=== PATIENT | male | born 1960 | race Caucasian/White ===

== ENCOUNTER → 2016-08-23 | Outpatient (CLI) | payer OTHER ==
--- NOTE | 2016-08-23 13:13 | FL ---
EXAMINATION TYPE: FL UGI DATE OF EXAM: 08/23/2016 10:29 AM COMPARISON: NONE CLINICAL HISTORY: Difficulty in swallowing. Preliminary view of the abdomen reveals a normal bowel gas pattern. Upper GI examination was performed according to the air contrast technique. Barium and effervescent crystal was swallowed without difficulty or delay. Esophageal peristalsis and motility are within normal limits. There is no evidence for esophagitis, intraluminal mass, hiatal hernia or gastroesophageal reflux. The stomach has a normal appearance in terms of its size, shape and location. No gastric filling defects or ulcer craters are seen. The du odenal bulb and sweep are also free of intraluminal lesion or ulcer crater. IMPRESSION: Unremarkable evaluation.
== END | disposition home or self-care (01) ==
LOC: RADFLWHC 09:25
PROVIDERS: ATTEND Family Medicine
DX: R10.13 Epigastric pain (principal)
CPT/HCPCS: 74240

== ENCOUNTER → 2016-09-18 | Outpatient (CLI) | payer OTHER ==
--- NOTE | 2016-09-18 12:12 | ECHOS ---
Referral Reason:[id number] chest pain MEASUREMENTS -------- HEIGHT: 182.9 cm WEIGHT: 106.6 kg BP: 131/49 FINDINGS -------- Utilizing the standard Jonathan protocol the patient was exercised for 7 minutes, 30 seconds, achieving a maximum heart rate of 164 , which is 98 % of predicted maximal heart rate. There was physiologic heart rate and blood pressure response to exercise. Max Heart Rate: 164 % of Max Predicted Heart Rate: 98 Rest Heart Rate: 101 Rest BP: 131/49 Max BP: 204/92 Mets Achieved: 9.1 The test was stopped because the target heart rate was achieved. Sinus rhythm. In response to stress, the ECG showed no ST-T wave changes (see exercise report for details). LV size, wall thickness and systolic function are normal, with an EF of 60%. Echo images were acquired at peak stress which demonstrated appropriate augmentation of all left ventricular segments with slight decrease in cavity size. CONCLUSIONS -------- 1. Sinus rhythm. 2. In response to stress, the ECG showed no ST-T wave changes (see exercise report for details). 3. LV size, wall thickness and systolic function are normal, with an EF of 60%. 4. Echo images were acquired at peak stress which demonstrated appropriate augmentation of all left ventricular segments with slight decrease in cavity size. 5. No 2D echocardiographic evidence of inducible ischemia to achieved workload. ENGAGEMENT LIAISON: Adi Ramirez RDCS
== END | disposition home or self-care (01) ==
LOC: RADNMMAIN 09:12
PROVIDERS: ATTEND Family Medicine
DX: R07.9 Chest pain, unspecified (principal)
CPT/HCPCS: 93350; 93017; Q9957

== ENCOUNTER 2017-01-08 10:18 | Day surgery (SDC) | payer OTHER ==
[2017-01-03 15:06] VITALS: BMI 31.1
[~2017-01-08 10:18] MED LIST: LACTATED RINGERS 1,000 ML IV SCH
[2017-01-08 11:26] VITALS: RESP 16; TEMP 96.8
[2017-01-08] MEDS ORDERED: LIDOCAINE 1% 20 ML VIAL (10MG/ML) FOR IV START INTRADERMA ONE (11:33)
[2017-01-08] MEDS ORDERED: PROPOFOL 10 MG/ML 20 ML VIAL IV ONE (12:20)
[2017-01-08] MEDS ORDERED: LIDOCAINE 1% INJ 10MG/ML (20 ML MDV) ONE (12:20)
--- NOTE | 2017-01-08 12:57 | P.PCN ---
Date of Procedure: 01/08/17 Procedure(s) Performed: Procedure: Total colonoscopy. Preoperative diagnosis: Screening for neoplasia, patient has history of adenomatous polyp. Postoperative diagnosis: Exam within normal limits. Preparation: HalfLytely prep. Sedation: Was provided by anesthesia. Brief clinical history: The patient is a 56-year-old male who is scheduled for this evaluation because of history of polyps. His last exam was in January 2014 where a sigmoid adenoma was removed. The patient has been having some nonspecific abdominal symptoms over the last 8-9 months. An upper GI was normal. A CT of the abdomen raised the possibility of mesenteric adenitis. The patient had no bowel changes, vomiting or other alarm symptoms. Procedure: With the patient on his left lateral decubitus position and after informed consent and adequate sedation, the perianal area was inspected and it did not show any fissures or fistulas. There were no masses felt on digital rectal examination. The Olympus CFQ 160L video colonoscope was then inserted in the rectum in the usual fashion and advanced to the cecum. The mucosa appeared healthy. No significant polyps or tumors were seen or any obvious diverticular disease or other pathology. I retroflexed the endoscope in the rectum before the endoscope was withdrawn. The patient tolerated the procedure well. Plan: The patient was reassured. He will continue his regular follow-up with you and I recommended repeat exam in 5 years. I will be happy to see in the office of his abdominal complaints recur or change.
[2017-01-08 13:42] VITALS: BP 118/76; PULSE 75
== END 2017-01-08 14:04 | disposition home or self-care (01) ==
LOC: ORWHC2ENDO 10:18
DX: Z12.11 Encounter for screening for malignant neoplasm of colon (principal); I10 Essential (primary) hypertension; Z86.010 Personal history of colon polyps; Z79.899 Other long term (current) drug therapy
CPT/HCPCS: G0105; J2001; J2704; 45378

== ENCOUNTER 2022-02-07 10:20 | Day surgery (SDC) | payer OTHER ==
[2022-02-05 13:45] VITALS: BMI 31.1
[~2022-02-07 10:20] MED LIST changes: +LIDOCAINE 1% (10MG/ML) FOR IV START INTRADERMA PRN
[2022-02-07 10:51] VITALS: TEMP 97.8
[2022-02-07] MEDS ORDERED: PROPOFOL 10 MG/ML 20 ML VIAL IV ONE (11:43)
--- NOTE | 2022-02-07 11:59 | P.PCN ---
Date of Procedure: 02/07/22 Procedure(s) Performed: BRIEF HISTORY: Patient is a 61-year-old pleasant male scheduled for an elective colonoscopy as a part of evaluation of prior history of colon polyps/screening for colon cancer. Last colonoscopy was 5 years ago. PROCEDURE PERFORMED: Colonoscopy with snare polypectomy. PREOPERATIVE DIAGNOSIS: History of colon polyps/screening for colon cancer. IV sedation per Anesthesia. PROCEDURE: After informed consent was obtained, the patient, was brought into the endoscopy unit. IV sedation was administered by Anesthesia under continuous monitoring. Digital rectal examination was normal. Initially the Olympus CF-160 flexible video colonoscope was then inserted in the rectum, gradually advanced into the cecum without any difficulty. Careful examination was performed as the scope was gradually being withdrawn. Ileocecal valve and the appendiceal orifice were visualized and appeared normal. Prep was excellent. Mucosa of the cecum, appeared normal. Ascending colon there was a 5 limited polyp that was removed by snare polypectomy. Rest of the ascending colon, transverse colon, descending colon, sigmoid colon, and rectum appeared normal. Retroflexion was performed in the rectum and no lesions were seen. The patient tolerated the procedure well. IMPRESSION: 5 mm ascending colon polyp status post polypectomy Rest of the colon appeared normal RECOMMENDATIONS: Findings of this examination were discussed with the patient as his family.. He was advised to follow with the biopsy results and have a repeat colonoscopy in 5 years.
[2022-02-07 12:25] VITALS: RESP 18
[2022-02-07 12:28] VITALS: BP 103/67; PULSE 66
== END 2022-02-07 12:55 | disposition home or self-care (01) ==
LOC: ORWHC2ENDO 10:20
PROVIDERS: ATTEND Internal Medicine Gastroenterology
DX: Z12.11 Encounter for screening for malignant neoplasm of colon (principal); D12.2 Benign neoplasm of ascending colon; I10 Essential (primary) hypertension; Z79.810 Long term (current) use of selective estrogen receptor modulators (SERMs); Z79.899 Other long term (current) drug therapy
CPT/HCPCS: 88305; 45385; J2704